=== PATIENT | male | born 1985 | race Caucasian/White ===

== ENCOUNTER 2020-12-02 11:18 | Emergency (ER) | payer BC ==
[2020-12-02] MEDS ORDERED: Tetracaine HCl/PF 0.5% 4 ML Bottle ONE (11:31)
[2020-12-02] MEDS ORDERED: Tetracaine HCl/PF 0.5% 4 ML Bottle EYERT ONE (11:33)
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
== END 2020-12-02 12:11 | disposition home or self-care (01) ==
LOC: MW.ED 11:18
DX: S05.01XA Injury of conjunctiva and corneal abrasion without foreign body, right eye, initial encounter (principal); W22.8XXA Striking against or struck by other objects, initial encounter
CPT/HCPCS: 99282; 99283

== ENCOUNTER 2023-02-19 10:31 | Day surgery (SDC) | payer BC ==
[~2023-02-19 10:31] MED LIST: Lactated Ringers 1,000 ML IV SCH
[2023-02-19] MEDS ORDERED: Lactated Ringers 1,000 ML IV SCH (11:30)
[2023-02-19] MEDS ORDERED: Lidocaine 2% 5 ML SDV ONE (12:33)
[2023-02-19] MEDS ORDERED: Propofol 200 MG/20 ML SDV ONE ×2 (12:33→13:12)
== END 2023-02-19 14:05 | disposition home or self-care (01) ==
LOC: MW.SDS 10:31
PROVIDERS: ATTEND Surgery
DX: R19.7 Diarrhea, unspecified (principal); R10.32 Left lower quadrant pain; K64.8 Other hemorrhoids; I10 Essential (primary) hypertension; F41.9 Anxiety disorder, unspecified; G47.00 Insomnia, unspecified; E66.9 Obesity, unspecified; Z79.899 Other long term (current) drug therapy; Z68.38 Body mass index [BMI] 38.0-38.9, adult
CPT/HCPCS: 45380; J2704; J7120; 00811; J3490